=== PATIENT | male | born 1975 | race African-American/Black ===

== ENCOUNTER 2018-02-02 16:00 | Emergency (ER) | payer OTHER ==
[~2018-02-02] VITALS: Ht 160 cm; Wt 68.0 kg
[2018-02-02] MEDS ORDERED: MOBIC15 MG PO (16:11)
[2018-02-02] MEDS ORDERED: FLEXERIL PO (16:11)
[2018-02-02 16:22] VITALS: BP 112/70
== END 2018-02-02 16:23 | disposition home or self-care (01) ==
LOC: ER 16:00
DX: S16.1XXA Strain of muscle, fascia and tendon at neck level, initial encounter (principal); J45.909 Unspecified asthma, uncomplicated; F17.210 Nicotine dependence, cigarettes, uncomplicated; V89.2XXA Person injured in unspecified motor-vehicle accident, traffic, initial encounter; Y93.89 Activity, other specified; Y92.89 Other specified places as the place of occurrence of the external cause; Y99.8 Other external cause status